=== PATIENT | female | born 1980 | race Caucasian/White ===

== ENCOUNTER 2016-07-07 11:38 | Inpatient (IN) | payer SELFPAY ==
[2016-07-07] MEDS ORDERED: PITOCin/NS 20 UNIT/1000ML DRIP 20,000 MILLIUNITS/1,000 ML BAG IV ONE (11:42)
[2016-07-07] MEDS ORDERED: LACTATED RINGERS 1,000 ML ONE ×2 (11:42→12:15)
--- NOTE | 2016-07-07 12:01 | History and Physical Report ---
History of Present Illness Date of examination: 07/07/16 Date of admission: 07/07/16 11:41 Chief complaint: Painful contractions History of present illness: 36-year-old 014 at 40+1 weeks gestation presents in active labor, she was already 8 cm dilated in triage and subsequently progressed to fully. She is a [facility] patient with uneventful care. She is GBS neg Past History Past Medical History: no pertinent history Past Surgical History: no surgical history [employer] History: denies: chlamydia, gonorrhea, hepatitis B, hepatitis C, HIV, syphilis Social history: , full code. denies: smoking, alcohol abuse, prescription drug abuse, IV drug use - Obstetrical History Expected Date of Delivery: 07/06/16 Actual Gestation: 40 Week(s) 1 Day(s) : 6 Para: 4 Number of Living Children: 4 Medications and Allergies Allergies Allergy/AdvReac Type Severity Reaction Status Date / Time No Known Allergies Allergy Unverified 04/20/15 21:15 Home Medications Medication Instructions Recorded Confirmed Last Taken Type Pnv #14/Ferrous Fum/Folic Acid 1 mg PO DAILY 04/22/15 04/22/15 1 Day Ago History 1 tab Review of Systems Constitutional: no fever, no chills, no sweats Cardiovascular: no chest pain, no syncope, no lightheadedness, no shortness of breath, no dyspnea on exertion Respiratory: no shortness of breath, no dyspnea on exertion Gastrointestinal: abdominal pain, no nausea, no vomiting Genitourinary: leakage of fluid, no vaginal bleeding, no vaginal discharge - Physical Exam Abdomen: Positive: normal appearance, soft. Negative: distention, tenderness, guarding, rigidity Genitourinary (Female): Positive: normal external genitalia Uterus: Positive: enlarged (EFW ~ 3600) Adnexa: both: normal Extremities: Positive: normal - Obstetrical FHR: category 1 Cervical Dilatation: 8.5 Results All other labs normal. Assessment and Plan A: 36 y/o at 40+1 wks in active labor -Cat 1 tracing P: -Expectant mgt -Anticipate - Patient Problems (1) 40 weeks gestation of Current Visit: No Status: Acute (2) Active labor at term Current Visit: Yes Status: Acute
[2016-07-07 12:08] LABS: Basophils % (Auto) 0.1 % (0.0-1.8); Eosinophils % (Auto) 0.3 % (0.0-4.3); Hematocrit 38.9 % (30.3-42.9); Hemoglobin 13.3 gm/dl (10.1-14.3); Mean Corpuscular HGB Conc 34 % (30-34); Mean Corpuscular Hemoglobin 31 pg (28-32); Mean Corpuscular Volume 89 fl (79-97); Platelet Count 150 K/mm3 (140-440); Red Blood Count 4.35 M/mm3 (3.65-5.03); Red Cell Distribution Width 13.8 % (13.2-15.2); White Blood Count 9.9 K/mm3 (4.5-11.0)
[2016-07-07] MEDS ORDERED: PITOCin/NS 30 UNIT/500ML 30,000 MILLIUNITS/500 ML BAG IV SCH (14:00)
[2016-07-07] MEDS ORDERED: CYTOTEC ONE (14:32)
--- NOTE | 2016-07-07 14:44 | Procedure Note ---
OB Delivery Note - Delivery Date of Delivery: 07/07/16 Surgeon: GAUDENCIO HICKS Estimated blood loss: 200cc - Vaginal Delivery presentation: vertex Delivery position: OA Intrapartum events: shoulder dystocia (Less than 30 seconds and relieved with [facility] only) Delivery induction: none Delivery augmentation: pitocin Delivery monitor: external FHT, external uterine Route of delivery: Delivery placenta: spontaneous Delivery cord: nuchal cord (Tight), 3 umbilical vessels Episiotomy: none Delivery laceration: 1st degree (Not bleeding and not repaired) Anesthesia: none - Infant A at 1 minute: 8 at 5 minutes: 9 Infant Gender: Male (del @ 14:20, weight is 8#2 or 3680 g)
[2016-07-07] MEDS ORDERED: SODIUM CHLORIDE FLUSH SYRINGE 10 ML IV PRN (15:00)
[2016-07-07] MEDS ORDERED: ZOFRAN IV PRN (15:00)
[2016-07-07] MEDS ORDERED: PHENERGAN PO PRN (15:00)
[2016-07-07] MEDS ORDERED: LANSINOH TP PRN (15:00)
[2016-07-07] MEDS ORDERED: CYTOTEC PR ONE (15:00)
[2016-07-07] MEDS ORDERED: TUCKS PAD TP PRN (15:00)
[2016-07-07] MEDS ORDERED: DERMOPLAST TP PRN (15:00)
[2016-07-07] MEDS ORDERED: PHENERGAN PR PRN (15:00)
[2016-07-07] MEDS ORDERED: PITOCin/NS 20 UNIT/1000ML DRIP 20 UNIT/1,000 ML BAG IV SCH (15:00)
[2016-07-07] MEDS ORDERED: BENADRYL PO PRN (15:00)
[2016-07-07] MEDS ORDERED: TYLENOL PO PRN ×2 (15:00)
[2016-07-07] MEDS: NORCO 5/325 PO PRN (16:35)
[2016-07-07] MEDS: MOTRIN PO SCH ×2 (18:02→23:55)
[2016-07-07] MEDS: COLACE PO SCH (21:43)
[2016-07-07] MEDS: SENOKOT S PO SCH (21:43)
[2016-07-07] MEDS: FEOSOL PO SCH (21:43)
[2016-07-07] MEDS ORDERED: MILK OF MAGNESIA PO PRN (22:00)
[2016-07-07] MEDS ORDERED: DULCOLAX PR PRN (22:00)
[2016-07-07] MEDS ORDERED: ANUCORT-HC PR PRN (22:00)
[2016-07-08 02:40] LABS: Hematocrit 36.2 % (30.3-42.9); Hemoglobin 12.3 gm/dl (10.1-14.3)
[2016-07-08] MEDS: NORCO 5/325 PO PRN (03:18)
[2016-07-08] MEDS: MOTRIN PO SCH ×2 (05:38→11:28)
--- NOTE | 2016-07-08 08:04 | Progress Note ---
Assessment and Plan PPD# 1 s/p -Doing well P: -Continue routine care -Anticipate discharge in 24-48 hours - Patient Problems (1) 40 weeks gestation of Current Visit: No Status: Acute (2) Active labor at term Current Visit: Yes Status: Acute (3) Status post normal vaginal delivery Current Visit: No Status: Acute Subjective - Subjective Date of service: 07/08/16 Principal diagnosis: PPD# 1 s/p Interval history: Seen and examined, stable doing well Patient reports: appetite normal, voiding normally, pain well controlled, ambulating normally, no dizzy ambulation, no flatus : doing well Objective - Vital Signs Latest vital signs: Vital Signs Temp Pulse Pulse Resp BP BP Pulse Ox 07/08/16 03:18 20 07/08/16 00:50 98.4 F 94 H 20 115/69 07/07/16 20:25 98.4 F 103 H 18 109/61 07/07/16 16:35 20 07/07/16 16:05 99.6 F 91 H 16 117/82 07/07/16 13:31 118 H 98 07/07/16 13:26 111 H 97 07/07/16 13:21 112 H 97 07/07/16 13:16 120 H 98 07/07/16 13:11 111 H 97 07/07/16 13:06 112 H 97 07/07/16 13:03 107 H 121/73 07/07/16 13:01 111 H 95 07/07/16 12:59 98.9 F 110 H 18 121/73 98 Intake and Output 07/07/16 07/08/16 07/08/16 22:59 06:59 14:59 Intake Total 850 480 Output Total 400 900 Balance 450 -420 Intake: IV 250 PITOCin/NS 20 UNIT/1000ML 250 DRIP 20 unit In 1,000 ml @ 250 mls/hr IV TITR ALEXYS Rx#:[id number] Oral 120 240 Intake, Free Water 480 240 Output: Urine 400 900 Void 400 900 Other: Total, Intake Amount 120 240 Total, Output Amount 400 900 Voiding Method Toilet Toilet # Bowel Movements 1 - Exam Abdomen: Present: normal appearance, soft. Absent: distention, tenderness, guarding, rigidity Uterus: Present: fundal height below umbilicus. Absent: tenderness Extremities: Present: normal - Labs Labs: Abnormal lab results 07/07/16 Range/Units 11:55 Seg Neutrophils % 75.6 H (40.0-70.0) %
--- NOTE | 2016-07-08 08:05 | Discharge Summary ---
Providers - Providers Date of Admission: 07/07/16 11:41 Date of discharge: 07/09/16 Attending physician: GAUDENCIO HICKS Primary care physician: GAUDENCIO HICKS Hospitalization Reason for admission: active labor Delivery: Episiotomy: none Laceration: 1st degree Other procedures: none complications: none Discharge diagnosis: IUP at term delivered [place] baby: male Hospital course: Uncomplicated post course Condition at discharge: Good Disposition: DISCHARGED TO HOME OR SELFCARE - Discharge Diagnoses (1) 40 weeks gestation of Status: Acute (2) Active labor at term Status: Acute (3) Status post normal vaginal delivery Status: Acute Plan - Discharge Medications Prescriptions: Ibuprofen [Motrin 600 MG tab] 600 mg PO Q8H PRN #30 tablet PRN Reason: Pain Multivitamin with Iron [Multivitamins with Iron] 1 each PO DAILY #30 tablet - Provider Discharge Summary Activity: no sex for 6 weeks, no heavy lifting 4 weeks, no strenuous exercise Diet: routine Additional instructions: [] Smoking cessation referral if applicable(refer to patient education folder for contact #) [] Refer to [facility]'s [facility] Center Booklet Call your doctor immediately for: * Fever > 100.5 * Heavy vaginal bleeding ( >1 pad per hour) * Severe persistent headache * Shortness of breath * Reddened, hot, painful area to leg or breast * Drainage or odor from incision. * Keep incision clean and dry at all times and follow doctor's instructions regarding bathing/showering - Follow up plan Follow up: GAUDENCIO HICKS MD [Primary Care Provider] - 6 Weeks
[2016-07-08] MEDS: SENOKOT S PO SCH (08:43)
[2016-07-08] MEDS ORDERED: PRENATAL VITAMIN PO SCH (10:00)
[2016-07-08] MEDS: COLACE PO SCH (10:19)
[2016-07-08] MEDS: FEOSOL PO SCH (10:19)
[2016-07-08 16:39] VITALS: BP 106/63
== END 2016-07-08 21:02 | disposition home or self-care (01) | DRG 775 ==
LOC: TRG 11:38 → LD 11:41 → OB 15:55
PROVIDERS: ADMIT Obstetrics & Gynecology Gynecology; ATTEND Obstetrics & Gynecology Gynecology
PROC: 10E0XZZ Delivery of Products of Conception, External Approach (ICD-10-PCS; principal; 2016-07-07)
DX: O69.1XX0 Labor and delivery complicated by cord around neck, with compression, not applicable or unspecified (principal); O66.0 Obstructed labor due to shoulder dystocia; O75.89 Other specified complications of labor and delivery; O70.0 First degree perineal laceration during delivery; Z3A.40 40 weeks gestation of pregnancy; Z37.0 Single live birth
CPT/HCPCS: 36415; 85014; 85018; 85025; 86850; 86900; 86901; 99211; A6250; G0463; J2590; J7120